=== PATIENT | male | born 1975 | race American Indian/Alaskan Native ===

== ENCOUNTER 2018-02-20 22:07 | Emergency (ER) | payer SELFPAY ==
[2018-02-21] MEDS ORDERED: MORPHINE IV ONE (00:02)
[2018-02-21] MEDS ORDERED: ZOFRAN IV ONE (00:02)
--- NOTE | 2018-02-21 00:05 | Emergency Department Report ---
ED Abdominal Pain HPI - General Chief Complaint: Abdominal Pain Stated Complaint: KIDNEY PAIN Time Seen by Provider: 02/20/18 23:56 Source: patient Mode of arrival: Ambulatory Limitations: No Limitations - History of Present Illness Initial Comments: Patient is 43 years old male with history of kidney stone. Patient presented to the ER complaining of left flank pain for the last 3 days. Patient stated that this is typical when he had his kidney stones 5-year-old. Patient denied any nausea or vomiting. No chest pain. MD Complaint: flank pain -: days(s) Location: L flank Radiation: none Migration to: no migration Quality: sharp Consistency: constant - Related Data Allergies Allergy/AdvReac Type Severity Reaction Status Date / Time No Known Allergies Allergy Unverified 02/20/18 22:54 ED Review of Systems ROS: Stated complaint: KIDNEY PAIN Other details as noted in HPI Comment: All other systems reviewed and negative Respiratory: denies: cough, orthopnea, shortness of breath, SOB with exertion Cardiovascular: denies: chest pain, palpitations Gastrointestinal: abdominal pain. denies: nausea, vomiting, diarrhea, constipation, hematemesis, melena, hematochezia Genitourinary: denies: urgency, dysuria, frequency, hematuria, discharge, testicular pain, testicular mass Musculoskeletal: back pain Neurological: denies: headache, weakness ED Past Medical Hx - Past Medical History Previous Medical History?: Yes Hx Hypertension: Yes - Surgical History Past Surgical History?: No - Social History Smoking Status: Never Smoker Substance Use Type: None ED Physical Exam - General Limitations: No Limitations General appearance: alert, in distress (moderate distress secondary to pain) - Head Head exam: Present: atraumatic, normocephalic, normal inspection - Eye Eye exam: Present: normal appearance - ENT ENT exam: Present: normal exam, normal orophraynx, mucous membranes moist - Respiratory Respiratory exam: Present: normal lung sounds bilaterally. Absent: respiratory distress, wheezes, rales, rhonchi, chest wall tenderness, accessory muscle use, decreased breath sounds, prolonged expiratory - Cardiovascular Cardiovascular Exam: Present: regular rate, normal rhythm, normal heart sounds - GI/Abdominal GI/Abdominal exam: Present: soft, normal bowel sounds. Absent: distended, tenderness, guarding, rebound, rigid, diminished bowel sounds, organomegaly, mass, bruit, pulsatile mass, hernia - Extremities Exam Extremities exam: Present: normal capillary refill. Absent: calf tenderness - Back Exam Back exam: Present: CVA tenderness (L). Absent: tenderness - Neurological Exam Neurological exam: Present: alert, oriented X3, CN II-XII intact, normal gait, reflexes normal - Skin Skin exam: Present: warm, intact, normal color ED Course Vital Signs 02/20/18 02/21/18 22:44 00:28 Temperature 98.8 F 98.1 F Pulse Rate 84 73 Respiratory 16 20 Rate Blood Pressure 190/114 Blood Pressure 159/103 [Left] O2 Sat by Pulse 100 100 Oximetry - Reevaluation(s) Reevaluation #1: 02/21/18 02:50 Patient stated that his pain is better but is still have some pain. Informed the patient about his CT abdomen and pelvis results which show a left ureteric stone and I advised patient to follow up as Dr. Reddy in the next 2-3 days. ED Medical Decision Making - Lab Data Result diagrams: 02/21/18 00:16 02/21/18 00:16 - Radiology Data Radiology results: report reviewed Referring Physician: JACINTO MORRIS Patient Name: ADRIANA SHRESTHA Date of : 1975 Sex: Male Report Date: 2018-02-21 Report Status: [place] [address] Cat Scan Report Signed Patient: ADRIANA SHRESTHA MR#: [id number] : 1975 Acct:[id number] Age/Sex: 43 / M ADM Date: 02/20/18 Loc: ED Attending Dr: Ordering Physician: JACINTO MORRIS Date of Service: 02/21/18 Procedure(s): CT abdomen pelvis wo con Accession Number(s): [id number] cc: JACINTO MORRIS FINAL REPORT EXAM: CT ABDOMEN PELVIS WO CON HISTORY: left flank pain TECHNIQUE: Helical CT scan through the abdomen and pelvis without contrast. Images are reconstructed in the sagittal and coronal planes. PRIORS: None. FINDINGS: Solid organ and bowel evaluation is limited without intravenous contrast. Bowel evaluation is limited without oral contrast. The lung bases are clear. The liver, gallbladder, pancreas, spleen and adrenal glands appear normal. There are 2 stones in the right kidney measuring 3 and 1 mm. There is a 1.5 cm low-attenuation lesion in the right kidney most likely representing a cyst but is incompletely evaluated without the use of intravenous contrast. There is no hydronephrosis or ureterolithiasis on the right. On the left there is mild hydronephrosis and pelviectasis secondary to a 7 mm stone in the proximal left ureter approximately 3 cm distal to the UPJ . There is another 4 mm stone in the lower pole of the left dot the bladder appears grossly normal. The pelvic organs appear grossly normal. The stomach appears grossly within normal limits. There are no abnormally dilated loops of bowel or acute inflammatory changes. A normal-appearing appendix is identified. The abdominal aorta has a normal diameter. 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 Mild left hydronephrosis and pelviectasis secondary to a 7 mm stone in the proximal left ureter approximately 3 cm distal to the UPJ 2. Bilateral nephrolithiasis 3. 1.5 cm low-attenuation lesion in the right kidney most likely representing a cyst but incompletely evaluated without the use of intravenous contrast. Recommend evaluation with ultrasound on a routine basis. 4. Mild osteoarthrosis of the bilateral hips. Transcribed By: MARIA M Dictated By: SERGO ESCOBEDO MD Electronically Authenticated By: SERGO ESCOBEDO MD Signed Date/Time: 02/21/18205 DD/ 5 TD/TT: 02/21/18205 Critical care attestation.: If time is entered above; I have spent that time in minutes in the direct care of this critically ill patient, excluding procedure time. ED Disposition Clinical Impression: Acute left flank pain, Ureteric calculus Disposition: -01 TO HOME OR SELFCARE Is pt being admited?: No Condition: Stable Instructions: Renal Colic (ED), Kidney Stones (ED) Referrals: ILIANA REDDY MD [Staff Physician] - 2-3 Days
[2018-02-21 00:48] LABS: Basophils % (Auto) 0.4 % (0.0-1.8); Eosinophils # (Auto) 0.1 K/mm3 (0.0-0.4); Eosinophils % (Auto) 1.4 % (0.0-4.3); Hematocrit 36.8 % (35.5-45.6); Hemoglobin 12.5 gm/dl (11.8-15.2); Lymphocytes # (Auto) 1.5 K/mm3 (1.2-5.4); Lymphocytes % (Auto) 17.6 % (13.4-35.0); Mean Corpuscular HGB Conc 34 % (32-34); Mean Corpuscular Hemoglobin 28 pg (28-32); Mean Corpuscular Volume 81 fl (84-94); Monocytes # (Auto) 0.9 K/mm3 (0.0-0.8); Monocytes % (Auto) 10.2 % (0.0-7.3); Platelet Count 242 K/mm3 (140-440); Red Blood Count 4.56 M/mm3 (3.65-5.03); Red Cell Distribution Width 13.8 % (13.2-15.2)
[2018-02-21 00:56] LABS: Calcium 9.4 mg/dL (8.4-10.2)
[2018-02-21 01:10] LABS: Bilirubin,Urine NEG (Negative); Blood,Urine SM (Negative); Color,Urine Yellow (Yellow); Mucus,Urine FEW /HPF; Protein,Urine <15 mg/dL mg/dL (Negative); Urobilinogen,Urine < 2.0 mg/dL (<2.0)
--- NOTE | 2018-02-21 02:13 | Cat Scan Report ---
FINAL REPORT EXAM: CT ABDOMEN PELVIS WO CON HISTORY: left flank pain TECHNIQUE: Helical CT scan through the abdomen and pelvis without contrast. Images are reconstructed in the sagittal and coronal planes. PRIORS: None. FINDINGS: Solid organ and bowel evaluation is limited without intravenous contrast. Bowel evaluation is limited without oral contrast. The lung bases are clear. The liver, gallbladder, pancreas, spleen and adrenal glands appear normal. There are 2 stones in the right kidney measuring 3 and 1 mm. There is a 1.5 cm low-attenuation lesion in the right kidney most likely representing a cyst but is incompletely evaluated without the use of intravenous contrast. There is no hydronephrosis or ureterolithiasis on the right. On the left there is mild hydronephrosis and pelviectasis secondary to a 7 mm stone in the proximal left ureter approximately 3 cm distal to the UPJ . There is another 4 mm stone in the lower pole of the left dot the bladder appears grossly normal. The pelvic organs appear grossly normal. The stomach appears grossly within normal limits. There are no abnormally dilated loops of bowel or acute inflammatory changes. A normal-appearing appendix is identified. The abdominal aorta has a normal diameter. 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 Mild left hydronephrosis and pelviectasis secondary to a 7 mm stone in the proximal left ureter approximately 3 cm distal to the UPJ 2. Bilateral nephrolithiasis 3. 1.5 cm low-attenuation lesion in the right kidney most likely representing a cyst but incompletely evaluated without the use of intravenous contrast. Recommend evaluation with ultrasound on a routine basis. 4. Mild osteoarthrosis of the bilateral hips.
[2018-02-21] MEDS ORDERED: TORADOL IV ONE (02:49)
[2018-02-21 03:11] VITALS: BP 157/99
== END 2018-02-21 03:25 | disposition home or self-care (01) ==
LOC: ED 22:07
DX: N20.1 Calculus of ureter (principal); I10 Essential (primary) hypertension
CPT/HCPCS: 36415; 74176; 80048; 81001; 85025; 96374; 96375; 99284; J1885; J2270; J2405

== ENCOUNTER 2018-02-27 09:19 | Day surgery (SDC) | payer SELFPAY ==
[2018-02-27] MEDS ORDERED: DILAUDID IV PRN (09:29)
[2018-02-27] MEDS ORDERED: ZOFRAN IV PRN (09:29)
[2018-02-27] MEDS ORDERED: VERSED IV NR (10:00)
[2018-02-27] MEDS ORDERED: LACTATED RINGERS 1,000 ML IV SCH ×2 (10:00)
[2018-02-27] MEDS ORDERED: DILAUDID IV SCH (10:52)
[2018-02-27] MEDS ORDERED: ANCEF/STERILE WATER 2 GM/20 ML IV NR (11:00)
[2018-02-27] MEDS ORDERED: DIPRIVAN 10 MG/ML IV ONE (11:11)
[2018-02-27] MEDS ORDERED: SUBLIMAZE ONE (11:11)
[2018-02-27] MEDS ORDERED: XYLOCAINE MPF 2% ONE (11:11)
--- NOTE | 2018-02-27 12:48 | Anesthesia Day of Surgery ---
Anesthesia Day of Surgery - Day of Surgery Patient Examined: Yes Patient H&P Reviewed: Yes Patient is NPO: Yes
--- NOTE | 2018-02-27 12:48 | Anesthesia Consultation ---
Anesthesia Consult and Med Hx Date of service: 02/27/18 - Airway Anesthetic Teeth Evaluation: Good ROM Head & Neck: Adequate Mental/Hyoid Distance: Adequate Mallampati Class: Class I Intubation Access Assessment: Good - Pulmonary Exam CTA: Yes - Cardiac Exam Cardiac Exam: RRR - Pre-Operative Health Status ASA Pre-Surgery Classification: ASA1 Proposed Anesthetic Plan: General - Pulmonary Hx Smoking: No Hx Sleep Apnea: No (LESTER PRE SCREEN HIGH RISK) - Cardiovascular System Hx Hypertension: Yes (X 1 YR) - Other Systems Hx Cancer: No
[2018-02-27] MEDS ORDERED: ZOFRAN ONE (13:04)
--- NOTE | 2018-02-27 13:06 | Short Stay Summary ---
Short Stay Documentation Date of service: 02/27/18 - History H&P: obtained from office - Allergies and Medications Current Medications: Allergies No Known Allergies Allergy (Verified 02/26/18 11:27) Home Medications Medication Instructions Recorded Confirmed Last Taken Type Ondansetron [Zofran Odt] 4 mg PO Q8HR PRN #14 tab.rapdis 02/21/18 02/26/18 Unknown Rx Tamsulosin [Flomax] 0.4 mg PO QDAY #14 cap 02/21/18 02/27/18 02/26/18 Rx amLODIPine [Norvasc] 5 mg PO DAILY #30 tab 02/21/18 02/27/18 02/27/18 04:00 Rx oxyCODONE /ACETAMINOPHEN [Percocet 1 tab PO Q6HR PRN #14 tablet 02/21/1802/26/18 Rx 5/325] Colace CAP 1 tab PO DAILY 02/26/18 02/27/18 02/25/18 History Active Medications Cefazolin Sodium (Ancef/Sterile Water 2 Gm/20 Ml) 2 gm IV PREOP NR Stop: 02/27/18 23:59 Hydromorphone HCl (Dilaudid) 0.5 mg IV Q10MIN PRN PRN Reason: Pain , Severe (7-10) Stop: 02/27/18 18:00 Hydromorphone HCl (Dilaudid) 0.5 mg IV ONCE FAITH Stop: 02/27/18 23:59 Last Admin: 02/27/18 11:03 Dose: 0.5 mg Lactated Ringer's (Lactated Ringers) 1,000 mls @ 42 mls/hr IV DIRECT FAITH Lactated Ringer's (Lactated Ringers) 1,000 mls @ 42 mls/hr IV DIRECT FAITH Stop: 02/27/18 16:00 Last Admin: 02/27/18 11:00 Dose: 42 mls/hr Midazolam HCl (Versed) 2 mg IV PREOP NR Stop: 02/27/18 23:59 Last Admin: 02/27/18 11:05 Dose: 2 mg - Brief post op/procedure progress note Date of procedure: 02/27/18 Pre-op diagnosis: left renal stone Post-op diagnosis: same Procedure: ESWL Anesthesia: GETA Surgeon: ILIANA BOWEN Condition: stable - Hospital course Hospital course: percocet & post op info on chart - Disposition Condition at discharge: Stable Disposition: DC-01 TO HOME OR SELFCARE Short Stay Discharge Plan Follow up with: PRIMARY CARE, [Primary Care Provider] - 7 Days
--- NOTE | 2018-02-27 13:37 | Operative Report ---
PREOPERATIVE DIAGNOSIS: Left renal stone, 7 mm. POSTOPERATIVE DIAGNOSIS: Left renal stone, 7 mm. PROCEDURE: Left extracorporeal shock wave lithotripsy. SURGEON: Sg Reddy MD ANESTHESIA: General. ESTIMATED BLOOD LOSS: Minimal. FLUIDS: Crystalloid. COMPLICATIONS: No complications. INDICATIONS: This patient is a 43-year-old gentleman who presented to the office with a 7 mm left renal stone on CT. Risks, benefits, and complications were explained to the patient and his . They agreed to proceed with surgical intervention. DESCRIPTION OF PROCEDURE: The patient was taken to the operative suite, placed in supine position. After adequate general anesthesia, the stone was localized using 2 planes. Extracorporeal shock wave lithotripsy was administered with a maximum kV of 8 and 3000 shocks. Adequate fragmentation could be appreciated. He tolerated the procedure well. Renal pause after 5 minutes was performed. Adequate fragmentation at the conclusion of the procedure. He was extubated and taken to recovery room. He will go home on Percocet and Phenergan and follow up in the office. JOB# [id number] [facility]
[2018-02-27] MEDS ORDERED: PERCOCET 5/325 PO SCH (13:55)
[2018-02-27 15:41] VITALS: BP 124/83
== END 2018-02-27 15:30 | disposition home or self-care (01) ==
LOC: OR 09:19
PROVIDERS: ATTEND Urology
DX: N20.0 Calculus of kidney (principal); I10 Essential (primary) hypertension; Z79.899 Other long term (current) drug therapy
CPT/HCPCS: 50590; J0690; J1170; J2250; J2405; J2704; J3010; J7120